=== PATIENT | male | born 1945 | race Caucasian/White ===

== ENCOUNTER → 2017-06-06 13:52 | Outpatient (CLI) | payer MEDICARE, OTHER, SELFPAY ==
--- NOTE | 2017-06-07 05:28 | LEAS ---
Arterial Study - Arterial Study Arterial Study: Bilateral lower extremity noninvasive arterial exam with exercise Right lower extremity Right low thigh index is 1.11 with calf index is 0.96. The right PT and DP ankle-brachial indices are 0.95 and 0.91 respectively. The right posterior tibial and dorsalis pedis waveforms are triphasic. Volume pulse recordings demonstrate normal amplification the calf and the ankle and digital waveforms well maintained. With exercise the right MURPHY goes from 0.952 immediately after exercise at 0.79 Left lower extremity The left low thigh index is 0.98. Left calf index is 1.01. Left PT and DP ankle-brachial indices are 0.92 and 0.74 respectively. The left posterior tibial and dorsalis pedis Doppler waveforms are triphasic. There is normal volume pulse recording amplification at the calf and the ankle and digital waveforms well maintained. With exercise the left MURPHY goes from 0.9-2 immediately after exercise at 0.94 which is normal Impression Findings are consistent with mild bilateral lower extremity arterial occlusive disease. The location of the disease involving the left lower extremity not identified. There is a normal exercise response on the left. On the right resting indices are mildly abnormal. With exercise there is a drop into the range of vascular claudication. The level of the disease cannot be determined on the current study. Duran Gomez M.D., F.A.C.S.
== END ==
PROVIDERS: Family Provider Family Medicine; PCP Family Medicine; Visit Provider Surgery
DX: I73.9 Peripheral vascular disease, unspecified (principal)
CPT/HCPCS: 93924

== ENCOUNTER → 2018-09-24 07:42 | Outpatient (CLI) | payer MEDICARE, OTHER, SELFPAY ==
[2017-06-08 09:52] VITALS: BMI 27.9
--- NOTE | 2018-09-24 07:45 | CDU_ITS ---
Reason For Study: Bilateral carotid stenosis Rt. Velocities/BP Lt. Velocities/BP Prox CCA 98.2/23.9 cm/sec. Prox CCA 94.9/22.3 cm/sec. Mid CCA 78.6/14.7 cm/sec. Mid CCA 89.4/23.4 cm/sec. Dist CCA 64/12.4 cm/sec. Dist CCA 94.9/24.9 cm/sec. Prox ICA 67.4/18.2 cm/sec. Prox ICA 85.1/22.5 cm/sec. Mid ICA 79.6/26.7 cm/sec. Mid ICA 94.9/27.4 cm/sec. Dist ICA 86/33.3 cm/sec. Dist ICA 113.8/37.1 cm/sec. Rt. ICA/CCA = 1.1. Lt. ICA/CCA = 1.2. Prox ECA 128.4/17 cm/sec. Prox ECA 128.4/17 cm/sec. Rt. Vert. 45.6/10.7 cm/sec. Lt. Vert. 41.5/10.9 cm/sec. Right Extracranial There is heterogeneous, smooth atherosclerotic plaque noted in the right common carotid artery. There is heterogeneous, smooth atherosclerotic plaque noted in the right internal carotid artery. There is intimal thickening but no significant atherosclerotic plaque noted in the right external carotid artery. Antegrade flow is noted in the right vertebral artery. Left Extracranial There is heterogeneous, smooth atherosclerotic plaque noted in the left common carotid artery. There is heterogeneous, smooth atherosclerotic plaque noted in the left internal carotid artery. There is intimal thickening but no significant atherosclerotic plaque noted in the left external carotid artery. Antegrade flow is noted in the left vertebral artery. Procedure Carotid Duplex 65440. Exam performed in department. Interpretation Summary Heterogenous smooth plague at the proximal right internal carotid with <50% stenosis <50% stenosis right external carotid Smooth plague at the proximal left internal carotid with <50% stenosis. <50% stenosis left external carotid Patent and antegrade vertebrals bilaterally Ordering Physician: Duran Gomez Referring Physician: AIDEN Gomez M.D. Performed By: Chantel Singh RVT
--- NOTE | 2018-09-24 07:45 | ART_ITS ---
Reason For Study: Claudication Procedure A bilateral lower extremity continuous wave Doppler with analog waveform analysis,segmental pressures,and ankle brachial indexes with exercise. Left Segmental Pressures Left brachial= 159mmHg. Left thigh = 151mmHg. Left calf = 125mmHg. Left posterior tibial artery = 157mmHg. Left dorsalis pedis artery = 158mmHg. Left digit = 97 mmHg. The left dorsalis pedis waveforms are triphasic. The left posterior tibial artery waveforms are triphasic. Right Segmental Pressures Right brachial= 162mmHg. Right posterior tibial artery = 149mmHg. Right dorsalis pedis artery = 162mmHg. Right digit = 98 mmHg. The right dorsalis pedis waveforms are triphasic. The right posterior tibial artery waveforms are triphasic. Indices The right ankle brachial index by the dorsalis pedis is 1.00. The right ankle brachial index by the posterior tibial artery is 0.92. The right digital-brachial index is 0.60. The right post exercise ankle brachial index is 1.02. The left ankle brachial index by the dorsalis pedis is 0.98. The left ankle brachial index by the posterior tibial artery is 0.97. The left digital-brachial index is 0.60. The left post exercise ankle brachial index is 1.02. Interpretation Summary Borderline bilateral ankle brachial indices at rest though with normal response with exercise. Triphasic waveforms noted bilaterally Mildly diminished digital brachial indices consistent with small vessel disease. Ordering Physician: Duran Gomez Referring Physician: AIDEN Gomez M.D. Performed By: Chantel Singh RVT
== END ==
PROVIDERS: Family Provider Family Medicine; PCP Family Medicine; Referring Provider Surgery; Visit Provider Surgery
DX: I65.23 Occlusion and stenosis of bilateral carotid arteries (principal); I73.9 Peripheral vascular disease, unspecified
CPT/HCPCS: 93880; 93924

== ENCOUNTER → 2018-10-08 13:19 | Outpatient (CLI) | payer MEDICARE, OTHER, SELFPAY ==
[2018-10-04 07:57] VITALS: BMI 27.9
--- NOTE | 2018-10-08 13:20 | CT_ITS ---
STUDY: CT PELVIS WITH CONTRAST REASON FOR EXAM: Male, 73 years old. Right inguinal pain RADIATION DOSAGE (If Supplied By Facility): CTDIvol = ( 19.09 ) mGy, DLP = ( 613.52 ) mGycm TECHNIQUE: Transaxial imaging of the pelvis was performed with oral contrast. 100 IV/Oral Isovue 300 was administered intravenously. Individualized dose optimization techniques were used for this CT. COMPARISON: None. FINDINGS: Normal urinary bladder. Normal visualized small intestine. Normal visualized colon. There is no pelvic fluid. There is no pelvic lymphadenopathy or mass lesion. Normal visualized pelvic arteries. Normal abdominal wall. There are diffuse degenerative changes of the visualized lumbar spine. CT/Pelvis WITH IV Contrast IMPRESSION: Degenerative bony changes, no demonstrated fracture or suspicious osseous lesion Normal bladder No suspicious pelvic mass Diffuse atherosclerosis Electronically Signed: Ion Santoro MD at 14:42 EDT , Service support ,
== END ==
PROVIDERS: Family Provider Family Medicine; PCP Family Medicine; Referring Provider Surgery; Visit Provider Surgery
DX: R10.9 Unspecified abdominal pain (principal)
CPT/HCPCS: 72193; Q9967

== ENCOUNTER → 2019-09-24 13:52 | Outpatient (CLI) | payer MEDICARE, OTHER, SELFPAY ==
[2018-10-04 07:57] VITALS: BMI 27.9
--- NOTE | 2019-09-24 13:54 | ART_ITS ---
Reason For Study: PVD Procedure A bilateral lower extremity continuous wave Doppler with analog waveform analysis,segmental pressures,and ankle brachial indexes with exercise. Left Segmental Pressures Left brachial= 171mmHg. Left thigh = 161mmHg. Left calf = 158mmHg. Left posterior tibial artery = 156mmHg. Left dorsalis pedis artery = 131mmHg. The left dorsalis pedis waveforms are triphasic. The left posterior tibial artery waveforms are triphasic. Right Segmental Pressures Right brachial= 156mmHg. Right thigh = 173mmHg. Right calf = 164mmHg. Right posterior tibial artery = 143mmHg. Right dorsalis pedis artery = 142mmHg. The right dorsalis pedis waveforms are triphasic. The right posterior tibial artery waveforms are triphasic. Indices The right ankle brachial index by the dorsalis pedis is .83. The right ankle brachial index by the posterior tibial artery is .84. The right ankle brachial index by the posterior tibial artery post exercise is 1.03. The left ankle brachial index by the dorsalis pedis is .77. The left ankle brachial index by the posterior tibial artery is .91. The left posterior tibial artery index post exercise is .96. Interpretation Summary AB normal bilateral lower extremity resting ankle-brachial indices with moderately severe disease on the right and mild disease on the left Triphasic waveforms are noted bilaterally suggesting a more mild level of disease Exercise indices demonstrate a normal response bilaterally Ordering Physician: Duran Gomez Performed By: DALE CASTILLO Aracelis
== END ==
PROVIDERS: PCP Family Medicine; Referring Provider Surgery; Visit Provider Surgery
DX: I73.9 Peripheral vascular disease, unspecified (principal)
CPT/HCPCS: 93924

== ENCOUNTER 2020-05-18 12:09 | Outpatient (RCR) | payer MEDICARE, SELFPAY ==
[2019-09-27 06:13] VITALS: BMI 27.9
== END 2020-05-18 23:59 ==
LOC: IMMUN 12:09
PROVIDERS: PCP Family Medicine; Visit Provider Family Medicine
DX: Z23 Encounter for immunization (principal)
CPT/HCPCS: 0011A; 0012A

== ENCOUNTER → 2021-09-24 | Outpatient (CLI) | payer MEDICARE, OTHER, SELFPAY ==
--- NOTE | 2021-09-24 10:44 | ART_ITS ---
Reason For Study: PVD Procedure A bilateral lower extremity continuous wave Doppler with analog waveform analysis,segmental pressures,and ankle brachial indexes with exercise. Left Segmental Pressures Left brachial= 148mmHg. Left thigh = 158mmHg. Left calf = 119mmHg. Left posterior tibial artery = 126mmHg. Left dorsalis pedis artery = 120mmHg. The left dorsalis pedis waveforms are triphasic. The left posterior tibial artery waveforms are triphasic. Right Segmental Pressures Right brachial= 149mmHg. Right thigh = 80mmHg. Right calf = 83mmHg. Right posterior tibial artery = 73mmHg. Right dorsalis pedis artery = 93mmHg. The right dorsalis pedis waveforms are biphasic. The right posterior tibial artery waveforms are biphasic. Indices The right ankle brachial index by the dorsalis pedis is 0.62. The right ankle brachial index by the posterior tibial artery is 0.49. The right post exercise ankle brachial index is 0.53. The left ankle brachial index by the dorsalis pedis is 0.81. The left ankle brachial index by the posterior tibial artery is 0.85. The left post exercise ankle brachial index is 1.01. VL/Lower Ext Art Exam w/ Exercise Interpretation Summary Abnormal right lower extremity PT and DP ankle-brachial index of rest at 0.49 a nd 0.62 respectively with biphasic Doppler waveforms consistent with moderately severe arterial occl usive disease Abnormal right lower extremity response from a baseline of 0.6-[address] exercise at 0.53 Abnormal left lower extremity PT and DP ankle-brachial index at rest at 0.85 an d 0.81 respectively consistent with moderately severe arterial occlusive disease although Doppler w aveforms are noted to be triphasic at both the left posterior tibial and dorsalis pedis levels With exercise the left MURPHY goes from an abnormal at 0.85 to immediately after e xercise at 1.01 which is a normal response. Findings suggest deterioration of the right lower extremity from the previous e xamination of September 24, 2019 Ordering Physician: Duran Gomez Referring Physician: Jose Manuel Hodge Performed By: Chantel Singh RVT
== END | disposition home or self-care (01) ==
LOC: CVS 10:37
PROVIDERS: PCP Family Medicine; Referring Provider Surgery; Visit Provider Surgery
DX: I73.9 Peripheral vascular disease, unspecified (principal)
CPT/HCPCS: 93924